=== PATIENT | female | born 1955 | race African-American/Black ===

== ENCOUNTER 2021-09-01 15:35 | Inpatient (IN) | payer MEDICARE, MEDICAID ==
[~2021-09-01] VITALS: Ht 160 cm; Wt 57.2 kg
[2021-09-01] MEDS ORDERED: SODIUM CHLORIDE 0.9% 1,000 ML IV ONE (16:15)
[2021-09-01 16:24] LABS: BASOPHILS % 0.3 % (0.0-2.0); EOSINOPHILS % 0.1 % (0.0-5.0); HEMATOCRIT. 38.5 % (36.0-48.0); LYMPHOCYTES % 20.4 % (20.0-50.0); MEAN CORPUSCULAR HEMOGLOBIN 30.1 pg (28.0-32.0); MEAN CORPUSCULAR VOLUME 89.3 fL (81.0-99.0); MEAN PLATELET VOLUME 8.2 fl (7.4-10.4); MONOCYTES % 10.4 % (2.0-8.0); NEUTROPHILS % 68.8 % (40.0-76.0); PLATELET 201 x1000/uL (130-400); RED BLOOD CELL COUNT 4.31 mill/uL (4.2-5.4); RED CELL DISTRIBUTION WIDTH 16.6 % (11.6-14.6)
[2021-09-01 16:35] LABS: CHLORIDE 91 mEq/L (98-107)
[2021-09-01] MEDS ORDERED: MAGNESIUM 2 G PREMIX 50 ML IV ONE (17:45)
[2021-09-01] MEDS ORDERED: POTASSIUM CHLORIDE INJ 40 MEQ in DEXT 5% WATER 250 ML IV ONE (17:45)
[2021-09-01] MEDS ORDERED: POTASSIUM CHLORIDE 20MEQ TABLET SR PO ONE (17:45)
[2021-09-01] MEDS: KCL 20MEQ/100ML PREMIX 100 ML IV SCH ×2 (18:43→23:36)
[2021-09-02] VITALS (7 sets, daily range): BP systolic 95–145; BP diastolic 58–81
[2021-09-02] MEDS ORDERED: ACETAMINOPHEN 325MG TABLET PO PRN ×2 (02:15→11:15)
[2021-09-02] MEDS ORDERED: ONDANSETRON HCL 4MG/2ML INJ IV PRN (02:15)
[2021-09-02] MEDS: POTASSIUM CHLORIDE 20MEQ TABLET SR PO SCH ×2 (08:21→16:47)
[2021-09-02] MEDS: DOCUSATE SODIUM 250MG CAPSULE PO SCH ×2 (08:21→16:47)
[2021-09-02] MEDS: ENOXAPARIN 40MG/0.4ML SYR SUBCUT SCH (08:22)
[2021-09-02 10:31] LABS: CHLORIDE 93 mEq/L (98-107)
[2021-09-02] MEDS ORDERED: CLONIDINE 0.1MG TABLET PO PRN (11:15)
[2021-09-02] MEDS ORDERED: HYDROCODONE/ACETAMINOPHEN 5/325MG TABLET PO PRN (11:15)
[2021-09-02] MEDS ORDERED: MAGNESIUM/ALUMINUM HYDROXIDE/SIMETHICONE 30ML UDC PO PRN ×2 (11:15→18:00)
[2021-09-02] MEDS ORDERED: DIPH25CA83 PO (11:21)
[2021-09-02] MEDS ORDERED: RISP05 PO (11:23)
[2021-09-02] MEDS ORDERED: MAGNESIUM 1 G PREMIX 100 ML IV NR (11:45)
[2021-09-02] MEDS ORDERED: POTASSIUM CHLORIDE INJ 60 MEQ in DEXT 5% WATER 470 ML IV NR (11:45)
[2021-09-02 14:57] LABS: CLARITY URINE CLEAR (CLEAR); COLOR URINE DARK YELLOW (YELLOW); KETONES URINE 3+ (NEGATIVE); LEUKOCYTE ESTERASE URINE TRACE (NEGATIVE); NITRITE URINE NEGATIVE (NEGATIVE); OCCULT BLOOD URINE NEGATIVE (NEGATIVE); PH URINE 6.5 (4.5-8.0); PROTEIN URINE 1+ (NEGATIVE)
[2021-09-02 15:16] LABS: *BARBITURATES SCREEN URINE NEGATIVE (NEGATIVE); *BENZODIAZEPINES SCREEN URINE NEGATIVE (NEGATIVE); *COCAINE SCREEN URINE NEGATIVE (NEGATIVE); CANNABINOID URINE SCREEN NEGATIVE (NEGATIVE); METHADONE URINE SCREEN NEGATIVE (NEGATIVE)
[2021-09-02 15:17] LABS: *AMPHETAMINES SCREEN URINE NEGATIVE (NEGATIVE); OPIATES URINE SCREEN NEGATIVE (NEGATIVE); PHENCYCLIDINE URINE SCREEN NEGATIVE (NEGATIVE)
[2021-09-02] MEDS ORDERED: LORAZEPAM 2MG/ML CPJ IV PRN (18:00)
[2021-09-02] MEDS ORDERED: NALOXONE HCL 0.4MG/ML VIAL IV PRN (18:15)
[2021-09-03] VITALS: BP 120/62
[2021-09-03] MEDS: KCL 20MEQ/100ML PREMIX 100 ML IV SCH ×3 (01:08→05:54)
[2021-09-03 04:00] VITALS: BP 106/75
[2021-09-03] MEDS: OMEPRAZOLE 20MG CAPSULE EXTENDED RELEASE PO SCH (06:15)
[2021-09-03 08:00] VITALS: BP 117/75
[2021-09-03] MEDS: FOLIC ACID 1MG TABLET PO SCH (08:48)
[2021-09-03] MEDS: MULTIVITAMINS,THER W-MINERALS TABLET PO SCH (08:48)
[2021-09-03] MEDS: ENOXAPARIN 40MG/0.4ML SYR SUBCUT SCH (08:49)
[2021-09-03] MEDS: DOCUSATE SODIUM 250MG CAPSULE PO SCH ×2 (08:49→16:40)
[2021-09-03] MEDS: THIAMINE HCL 100MG TABLET PO SCH (08:54)
[2021-09-03 09:01] LABS: BASOPHILS % 0.1 % (0.0-2.0); EOSINOPHILS % 0.1 % (0.0-5.0); HEMATOCRIT. 36.8 % (36.0-48.0); HEMOGLOBIN. 12.5 g/dL (12.0-16.0); LYMPHOCYTES % 23.1 % (20.0-50.0); MEAN CORPUSCULAR HEMOGLOBIN 30.6 pg (28.0-32.0); MEAN CORPUSCULAR VOLUME 89.8 fL (81.0-99.0); MEAN PLATELET VOLUME 8.8 fl (7.4-10.4); MONOCYTES % 12.1 % (2.0-8.0); NEUTROPHILS % 64.6 % (40.0-76.0); PLATELET 141 x1000/uL (130-400); RED CELL DISTRIBUTION WIDTH 16.3 % (11.6-14.6)
[2021-09-03 09:09] LABS: CHLORIDE 97 mEq/L (98-107)
[2021-09-03 09:15] LABS: PHOSPHORUS 2.4 mg/dL (2.5-4.9)
[2021-09-03 09:16] LABS: LDL CHOLESTEROL 74 mg/dL (5-100)
[2021-09-03 09:17] LABS: HDL CHOLESTEROL 28 mg/dL (40-59)
[2021-09-03 09:18] LABS: T4 FREE 1.51 ng/dL (0.76-1.46)
[2021-09-03 12:00] VITALS: BP 107/73
[2021-09-03] MEDS: MAGNESIUM OXIDE 400MG TABLET PO SCH (12:57)
[2021-09-03] MEDS ORDERED: SODIUM CHLORIDE 0.9% 500 ML IV ONE (13:00)
[2021-09-03 16:00] VITALS: BP 95/62
[2021-09-03 20:00] VITALS: BP 108/75
[2021-09-04] VITALS: BP 111/66
[2021-09-04 04:00] VITALS: BP 120/70
[2021-09-04 06:37] LABS: BASOPHILS % 0.1 % (0.0-2.0); CHLORIDE 97 mEq/L (98-107); EOSINOPHILS % 0.1 % (0.0-5.0); HEMATOCRIT. 35.2 % (36.0-48.0); HEMOGLOBIN. 11.9 g/dL (12.0-16.0); MEAN CORPUSCULAR HEMOGLOBIN 30.7 pg (28.0-32.0); MEAN CORPUSCULAR VOLUME 90.9 fL (81.0-99.0); MEAN PLATELET VOLUME 8.7 fl (7.4-10.4); MONOCYTES % 11.9 % (2.0-8.0); NEUTROPHILS % 51.9 % (40.0-76.0); PLATELET 120 x1000/uL (130-400); RED BLOOD CELL COUNT 3.87 mill/uL (4.2-5.4); RED CELL DISTRIBUTION WIDTH 16.5 % (11.6-14.6)
[2021-09-04 06:47] LABS: PHOSPHORUS 1.8 mg/dL (2.5-4.9)
[2021-09-04] MEDS: OMEPRAZOLE 20MG CAPSULE EXTENDED RELEASE PO SCH (06:55)
[2021-09-04 08:00] VITALS: BP 91/58
[2021-09-04] MEDS ORDERED: POTASSIUM CHLORIDE INJ 60 MEQ in DEXT 5% WATER 500 ML IV ONE (08:00)
[2021-09-04] MEDS: MULTIVITAMINS,THER W-MINERALS TABLET PO SCH (09:40)
[2021-09-04] MEDS: ENOXAPARIN 40MG/0.4ML SYR SUBCUT SCH (09:40)
[2021-09-04] MEDS: THIAMINE HCL 100MG TABLET PO SCH (09:40)
[2021-09-04] MEDS: FOLIC ACID 1MG TABLET PO SCH (09:40)
[2021-09-04] MEDS: MAGNESIUM OXIDE 400MG TABLET PO SCH (09:40)
[2021-09-04] MEDS: DOCUSATE SODIUM 250MG CAPSULE PO SCH (09:40)
[2021-09-04 12:00] VITALS: BP 95/58
[2021-09-04] MEDS ORDERED: LACTULOSE 20G/30ML UDC PO NR (12:15)
[2021-09-04] MEDS ORDERED: NALOXONE HCL 0.4MG/ML VIAL IV PRN (13:30)
[2021-09-04] MEDS ORDERED: MAGNESIUM 2 G PREMIX 50 ML IV NR (13:30)
[2021-09-04 13:31] LABS: INR 1.2; PROTHROMBIN TIME 12.6 sec (9.6-11.0)
[2021-09-04] MEDS ORDERED: ENOXAPARIN 60MG/0.6ML SYR SUBCUT SCH (13:43)
[2021-09-04] MEDS ORDERED: POTASSIUM PHOS,M-BASIC-D-BASIC 20 MMOL in DEXT 5% WATER 243.3333 ML IV NR (14:00)
[2021-09-04] MEDS ORDERED: ENOXAPARIN 60MG/0.6ML SYR SUBCUT NR (14:32)
[2021-09-04 16:00] VITALS: BP 101/74
[2021-09-04] MEDS ORDERED: DEXT 5% WATER + KCL 20MEQ/L 1,000 ML IV SCH (16:00)
[2021-09-04] MEDS ORDERED: LACTULOSE 20G/30ML UDC PO SCH (17:00)
[2021-09-04 20:00] VITALS: BP 115/71
[2021-09-05] VITALS: BP 118/66
[2021-09-05] MEDS: ENOXAPARIN 60MG/0.6ML SYR SUBCUT SCH ×3 (02:47→21:27)
[2021-09-05 04:00] VITALS: BP 116/65
[2021-09-05 07:49] LABS: CHLORIDE 97 mEq/L (98-107)
[2021-09-05 07:54] LABS: BASOPHILS % 0.1 % (0.0-2.0); HEMATOCRIT. 38.8 % (36.0-48.0); HEMOGLOBIN. 12.8 g/dL (12.0-16.0); LYMPHOCYTES % 22.8 % (20.0-50.0); MEAN CORPUSCULAR VOLUME 90.9 fL (81.0-99.0); MEAN PLATELET VOLUME 9.3 fl (7.4-10.4); MONOCYTES % 14.7 % (2.0-8.0); NEUTROPHILS % 62.4 % (40.0-76.0); PLATELET 138 x1000/uL (130-400); RED BLOOD CELL COUNT 4.27 mill/uL (4.2-5.4); RED CELL DISTRIBUTION WIDTH 16.8 % (11.6-14.6)
[2021-09-05 07:55] LABS: PHOSPHORUS 3.2 mg/dL (2.5-4.9)
[2021-09-05 08:00] VITALS: BP_SYST 101; BP_SYST 105; BP_SYST 85; BP_DIAS 60; BP_DIAS 67; BP_DIAS 73
[2021-09-05] MEDS: MULTIVITAMINS,THER W-MINERALS TABLET PO SCH (09:00)
[2021-09-05] MEDS: FOLIC ACID 1MG TABLET PO SCH (09:00)
[2021-09-05] MEDS: MAGNESIUM OXIDE 400MG TABLET PO SCH (09:00)
[2021-09-05] MEDS: THIAMINE HCL 100MG TABLET PO SCH (09:00)
[2021-09-05] MEDS ORDERED: DIATR MEGLU/DIATRIZOATE SOLN 30ML PO SCH (09:00)
[2021-09-05] MEDS: PANTOPRAZOLE SODIUM 40 MG/VIAL IV SCH (09:37)
[2021-09-05 12:00] VITALS: BP 96/54
[2021-09-05] MEDS: DEXT 5%/0.45% NACL 1000ML 1,000 ML IV SCH ×2 (13:12→21:27)
[2021-09-05] MEDS ORDERED: IOHEXOL-300 100 ML BOTTLE ONE (15:28)
[2021-09-05 16:00] VITALS: BP_SYST 98; BP_SYST 99; BP_DIAS 57; BP_DIAS 63
[2021-09-05 20:00] VITALS: BP 98/50
[2021-09-06] VITALS (14 sets, daily range): BP systolic 66–110; BP diastolic 35–71
[2021-09-06] MEDS: DEXT 5%/0.45% NACL 1000ML 1,000 ML IV SCH ×3 (07:09→23:09)
[2021-09-06 07:17] LABS: BASOPHILS % 0.2 % (0.0-2.0); EOSINOPHILS % 0.1 % (0.0-5.0); HEMATOCRIT. 37.2 % (36.0-48.0); HEMOGLOBIN. 12.3 g/dL (12.0-16.0); MEAN CORPUSCULAR HEMOGLOBIN 30.2 pg (28.0-32.0); MEAN CORPUSCULAR VOLUME 91.3 fL (81.0-99.0); MEAN PLATELET VOLUME 9.1 fl (7.4-10.4); MONOCYTES % 14.9 % (2.0-8.0); NEUTROPHILS % 54.8 % (40.0-76.0); PLATELET 115 x1000/uL (130-400); RED BLOOD CELL COUNT 4.07 mill/uL (4.2-5.4); RED CELL DISTRIBUTION WIDTH 16.6 % (11.6-14.6)
[2021-09-06 07:41] LABS: CHLORIDE 97 mEq/L (98-107)
[2021-09-06] MEDS: MULTIVITAMINS,THER W-MINERALS TABLET PO SCH (09:00)
[2021-09-06] MEDS: MAGNESIUM OXIDE 400MG TABLET PO SCH (09:00)
[2021-09-06] MEDS: FOLIC ACID 1MG TABLET PO SCH (09:00)
[2021-09-06] MEDS: THIAMINE HCL 100MG TABLET PO SCH (09:00)
[2021-09-06] MEDS: ENOXAPARIN 60MG/0.6ML SYR SUBCUT SCH ×2 (10:29→23:00)
[2021-09-06] MEDS: PANTOPRAZOLE SODIUM 40 MG/VIAL IV SCH (10:29)
[2021-09-06] MEDS ORDERED: LIDOCAINE HCL 1% 10 MG/ML 10ML VIAL ONE (15:08)
[2021-09-06] MEDS ORDERED: BUPIVACAINE HCL/PF 0.5% (5MG/ML) 10ML ONE (15:08)
[2021-09-06] MEDS ORDERED: POLYMYXIN B SULFATE 500000 UNITS/VIAL ONE (15:09)
[2021-09-06] MEDS ORDERED: SODIUM CHLORIDE 0.9% 500 ML IV ONE (16:15)
[2021-09-06] MEDS ORDERED: FENTANYL CITRATE/PF 50MCG/ML 2ML VIAL ONE (18:25)
[2021-09-06] MEDS ORDERED: PROPOFOL 200MG/20ML VIAL IV ONE (18:25)
[2021-09-06] MEDS ORDERED: NEOSTIGMINE METHYLSULFATE 1MG/ML 10 ML VIAL ONE (18:25)
[2021-09-06] MEDS ORDERED: ROCURONIUM BROMIDE 10MG/ML VIAL 5ML IV ONE (18:25)
[2021-09-06] MEDS ORDERED: MIDAZOLAM HCL 2 MG/2 ML VIAL ONE (18:26)
[2021-09-06] MEDS ORDERED: GLYCOPYRROLATE 0.2 MG/ML 2ML VIAL ONE (18:26)
[2021-09-06] MEDS ORDERED: ONDANSETRON HCL 4MG/2ML INJ IV PRN (19:15)
[2021-09-06] MEDS ORDERED: HYDROMORPHONE HCL/PF 2MG/ML CPJ IV PRN (19:15)
[2021-09-06] MEDS ORDERED: MEPERIDINE HCL/PF 25MG/ML CPJ IV PRN (19:15)
[2021-09-06] MEDS ORDERED: LABETALOL 5MG/ML SYR 20 MG/4 ML SYRINGE IV PRN (19:15)
[2021-09-06] MEDS ORDERED: PIPERACILLIN/TAZOBACTAM 3.375 G in DEXTROSE 5% WATER 50 ML IV SCH (19:29)
[2021-09-06] MEDS ORDERED: ALBUMIN HUMAN 12.5G/250ML (5%) IV ONE ×2 (19:36→20:38)
[2021-09-06] MEDS ORDERED: ONDANSETRON HCL 4MG/2ML INJ ONE (19:44)
[2021-09-06] MEDS ORDERED: DEXAMETHASONE 4MG/ML 1ML VIAL ONE (19:44)
[2021-09-06] MEDS ORDERED: PHENYLEPHRINE HCL 10 MG/ML 1ML (IV VIAL) IV ONE ×2 (19:44→21:18)
[2021-09-06] MEDS ORDERED: MORPHINE SULFATE 2 MG/ML CPJ (NOT FOR IM USE) IV PRN (22:30)
[2021-09-06 22:38] LABS: BG BASE EXCESS -7.2 mmol/L (-2.0-2.0); BG CARBOXYHEMOGLOBIN 0.3 % (0.5-1.5); BG DEOXYHEMOGLOBIN 0.6 % (0.0-5.0); BG FRACTION INSPIRED OXYGEN 100; BG HCO3 ACT 18.6 mmol/L (22.0-26.0); BG METHEMOGLOBIN 0.6 % (0.0-1.5); BG OXYGEN SATURATION 99.4 % (92.0-98.5); BG OXYHEMOGLOBIN 98.5 % (94.0-97.0); BG PCO2 38.4 mmHg (35.0-45.0); BG PH 7.303 (7.350-7.450); BG PO2 529.1 mmHg (75.0-100.0); BG SAMPLE SITE RIGHT RADIAL; BG VENT MODE VENT - AC
[2021-09-06] MEDS: PHENYLEPHRINE 100 MG in DEXT 5% WATER 240 ML IV PRN (23:50)
[2021-09-07] VITALS (103 sets, daily range): BP systolic 68–138; BP diastolic 23–75
[2021-09-07 06:20] LABS: CHLORIDE 107 mEq/L (98-107)
[2021-09-07 06:24] LABS: HEMOGLOBIN. 10.1 g/dL (12.0-16.0); MEAN PLATELET VOLUME 9.2 fl (7.4-10.4); RED BLOOD CELL COUNT 3.31 mill/uL (4.2-5.4)
[2021-09-07 06:25] LABS: PHOSPHORUS 3.3 mg/dL (2.5-4.9)
[2021-09-07 06:32] LABS: HEMATOCRIT. 29.7 % (36.0-48.0); LYMPHOCYTES % 12.4 % (20.0-50.0); MEAN CORPUSCULAR HEMOGLOBIN 30.6 pg (28.0-32.0); NEUTROPHILS % 79.6 % (40.0-76.0); PLATELET 128 x1000/uL (130-400)
[2021-09-07] MEDS ORDERED: SODIUM CHLORIDE 0.9% 1,000 ML IV ONE (06:45)
[2021-09-07] MEDS ORDERED: MAGNESIUM 2 G PREMIX 50 ML IV SCH ×2 (07:30→10:30)
[2021-09-07] MEDS ORDERED: POTASSIUM CHLORIDE INJ 40 MEQ in DEXT 5% WATER 250 ML IV ONE (08:00)
[2021-09-07] MEDS ORDERED: ALBUMIN HUMAN 12.5GM/50ML (25%) IV SCH (08:00)
[2021-09-07] MEDS: FOLIC ACID 1MG TABLET PO SCH (08:26)
[2021-09-07] MEDS: MAGNESIUM OXIDE 400MG TABLET PO SCH (08:26)
[2021-09-07] MEDS: THIAMINE HCL 100 MG in SODIUM CHLORIDE 0.9% 49 ML IV SCH (08:26)
[2021-09-07] MEDS: ENOXAPARIN 60MG/0.6ML SYR SUBCUT SCH ×2 (08:26→21:56)
[2021-09-07] MEDS: MULTIVITAMINS,THER W-MINERALS TABLET PO SCH (08:26)
[2021-09-07] MEDS: PANTOPRAZOLE SODIUM 40 MG/VIAL IV SCH (08:26)
[2021-09-07] MEDS: KCL 20MEQ/100ML PREMIX 100 ML IV SCH ×2 (08:29→10:48)
[2021-09-07] MEDS ORDERED: LIDOCAINE HCL 1% 10 MG/ML 10ML VIAL ONE (09:31)
[2021-09-07 09:58] LABS: BG CARBOXYHEMOGLOBIN 0.3 % (0.5-1.5); BG DEOXYHEMOGLOBIN 1.5 % (0.0-5.0); BG HCO3 ACT 15.1 mmol/L (22.0-26.0); BG METHEMOGLOBIN 0.5 % (0.0-1.5); BG OXYGEN SATURATION 98.5 % (92.0-98.5); BG OXYHEMOGLOBIN 97.7 % (94.0-97.0); BG PCO2 23.8 mmHg (35.0-45.0); BG PO2 159.3 mmHg (75.0-100.0); BG SAMPLE SITE RIGHT RADIAL; BG TOTAL HEMOGLOBIN 9.5 g/dL (12.0-18.0); BG VENT MODE VENT - AC
[2021-09-07] MEDS ORDERED: IPRATROPIUM/ALBUTEROL 0.5-3(2.5)MG/3ML NEB HHN PRN (10:00)
[2021-09-07] MEDS ORDERED: SODIUM CHLORIDE 0.9% 500 ML IV ONE (10:30)
[2021-09-07] MEDS: PHENYLEPHRINE 100 MG in DEXT 5% WATER 240 ML IV PRN ×2 (10:50→23:44)
[2021-09-07] MEDS: VASOPRESSIN 20 UNIT in SODIUM CHLORIDE 0.9% 99 ML IV PRN ×3 (10:51→23:43)
[2021-09-07] MEDS: FENTANYL CITRATE/PF 2,500 MCG in SODIUM CHLORIDE 0.9% 200 ML IV PRN (13:30)
[2021-09-07] MEDS: IPRATROPIUM/ALBUTEROL 0.5-3(2.5)MG/3ML NEB HHN SCH ×2 (14:11→21:27)
[2021-09-07] MEDS: DEXT 5%/0.45% NACL 1000ML 1,000 ML IV SCH (15:42)
[2021-09-08] VITALS (95 sets, daily range): BP systolic 74–132; BP diastolic 47–89
[2021-09-08] MEDS: IPRATROPIUM/ALBUTEROL 0.5-3(2.5)MG/3ML NEB HHN SCH ×4 (01:02→20:54)
[2021-09-08] MEDS: DEXT 5%/0.45% NACL 1000ML 1,000 ML IV SCH ×2 (01:53→09:56)
[2021-09-08] MEDS: DEXT 5% WATER + KCL 20MEQ/L 1,000 ML IV SCH ×2 (02:30→10:40)
[2021-09-08 05:05] LABS: BASOPHILS % 0.3 % (0.0-2.0); HEMATOCRIT. 23.8 % (36.0-48.0); LYMPHOCYTES % 20.2 % (20.0-50.0); MEAN CORPUSCULAR HEMOGLOBIN 30.1 pg (28.0-32.0); MEAN CORPUSCULAR VOLUME 89.6 fL (81.0-99.0); MEAN PLATELET VOLUME 9.2 fl (7.4-10.4); MONOCYTES % 9.9 % (2.0-8.0); NEUTROPHILS % 69.6 % (40.0-76.0); PLATELET 89 x1000/uL (130-400); RED BLOOD CELL COUNT 2.66 mill/uL (4.2-5.4); RED CELL DISTRIBUTION WIDTH 16.8 % (11.6-14.6)
[2021-09-08 05:15] LABS: CHLORIDE 103 mEq/L (98-107)
[2021-09-08 05:25] LABS: PHOSPHORUS 2.1 mg/dL (2.5-4.9)
[2021-09-08] MEDS ORDERED: POTASSIUM CHLORIDE INJ 40 MEQ in DEXT 5% WATER 250 ML IV ONE (07:15)
[2021-09-08] MEDS ORDERED: KCL 20MEQ/100ML PREMIX 100 ML IV SCH (07:30)
[2021-09-08] MEDS: PANTOPRAZOLE SODIUM 40 MG/VIAL IV SCH (08:13)
[2021-09-08] MEDS: FOLIC ACID 1MG TABLET PO SCH (08:13)
[2021-09-08] MEDS: MULTIVITAMINS,THER W-MINERALS TABLET PO SCH (08:13)
[2021-09-08] MEDS: PHENYLEPHRINE 100 MG in DEXT 5% WATER 240 ML IV PRN ×2 (08:14→19:44)
[2021-09-08] MEDS: VASOPRESSIN 20 UNIT in SODIUM CHLORIDE 0.9% 99 ML IV PRN (08:17)
[2021-09-08] MEDS: ENOXAPARIN 60MG/0.6ML SYR SUBCUT SCH (08:18)
[2021-09-08] MEDS ORDERED: ALBUMIN HUMAN 25GM/500ML (5%) IV ONE (08:30)
[2021-09-08 08:32] LABS: BG BASE EXCESS -4.3 mmol/L (-2.0-2.0); BG CARBOXYHEMOGLOBIN 0.3 % (0.5-1.5); BG DEOXYHEMOGLOBIN 1.1 % (0.0-5.0); BG FRACTION INSPIRED OXYGEN 30; BG HCO3 ACT 17.8 mmol/L (22.0-26.0); BG METHEMOGLOBIN 0.4 % (0.0-1.5); BG OXYGEN SATURATION 98.9 % (92.0-98.5); BG OXYHEMOGLOBIN 98.2 % (94.0-97.0); BG PCO2 23.1 mmHg (35.0-45.0); BG PH 7.504 (7.350-7.450); BG PO2 159.6 mmHg (75.0-100.0); BG SAMPLE SITE RIGHT RADIAL; BG TOTAL HEMOGLOBIN 8.7 g/dL (12.0-18.0); BG VENT MODE VENT - AC
[2021-09-08] MEDS: THIAMINE HCL 100 MG in SODIUM CHLORIDE 0.9% 49 ML IV SCH (08:32)
[2021-09-08] MEDS ORDERED: MAGNESIUM 2 G PREMIX 50 ML IV NR (09:00)
[2021-09-08] MEDS: FAMOTIDINE 20MG/2ML VIAL IV SCH (09:56)
[2021-09-08] MEDS: KCL 20MEQ/100ML PREMIX 100 ML IV SCH ×2 (10:25→12:57)
[2021-09-08] MEDS ORDERED: POTASSIUM PHOS,M-BASIC-D-BASIC 15 MMOL in DEXT 5% WATER 245 ML IV ONE (10:30)
[2021-09-08] MEDS: FENTANYL CITRATE/PF 2,500 MCG in SODIUM CHLORIDE 0.9% 200 ML IV PRN (19:44)
[2021-09-09] VITALS (80 sets, daily range): BP systolic 94–137; BP diastolic 55–85
[2021-09-09] MEDS ORDERED: IOHEXOL-350 100 ML BOTTLE ONE (02:41)
[2021-09-09] MEDS: PHENYLEPHRINE 100 MG in DEXT 5% WATER 240 ML IV PRN (05:27)
[2021-09-09] MEDS: FENTANYL CITRATE/PF 2,500 MCG in SODIUM CHLORIDE 0.9% 200 ML IV PRN (05:33)
[2021-09-09 05:35] LABS: HEMOGLOBIN. 7.8 g/dL (12.0-16.0); RED BLOOD CELL COUNT 2.59 mill/uL (4.2-5.4)
[2021-09-09 05:42] LABS: CHLORIDE 106 mEq/L (98-107)
[2021-09-09 05:49] LABS: BASOPHILS % 0.2 % (0.0-2.0); EOSINOPHILS % 0.4 % (0.0-5.0); HEMATOCRIT. 23.1 % (36.0-48.0); LYMPHOCYTES % 12.1 % (20.0-50.0); MEAN CORPUSCULAR HEMOGLOBIN 30.2 pg (28.0-32.0); MEAN CORPUSCULAR VOLUME 88.9 fL (81.0-99.0); MEAN PLATELET VOLUME 9.4 fl (7.4-10.4); MONOCYTES % 10.2 % (2.0-8.0); NEUTROPHILS % 77.1 % (40.0-76.0); PHOSPHORUS 2.2 mg/dL (2.5-4.9); PLATELET 83 x1000/uL (130-400); RED CELL DISTRIBUTION WIDTH 16.6 % (11.6-14.6)
[2021-09-09 08:10] LABS: BG BASE EXCESS -1.2 mmol/L (-2.0-2.0); BG CARBOXYHEMOGLOBIN 0.2 % (0.5-1.5); BG DEOXYHEMOGLOBIN 1.1 % (0.0-5.0); BG HCO3 ACT 21.4 mmol/L (22.0-26.0); BG METHEMOGLOBIN 0.7 % (0.0-1.5); BG OXYGEN SATURATION 98.9 % (92.0-98.5); BG PH 7.501 (7.350-7.450); BG PO2 183.3 mmHg (75.0-100.0); BG SAMPLE SITE RIGHT RADIAL; BG TOTAL HEMOGLOBIN 8.4 g/dL (12.0-18.0); BG VENT MODE VENT - AC
[2021-09-09] MEDS: IPRATROPIUM/ALBUTEROL 0.5-3(2.5)MG/3ML NEB HHN SCH ×4 (08:42→20:00)
[2021-09-09] MEDS: FOLIC ACID 1MG TABLET PO SCH (09:02)
[2021-09-09] MEDS: MULTIVITAMINS,THER W-MINERALS TABLET PO SCH (09:03)
[2021-09-09] MEDS: THIAMINE HCL 100 MG in SODIUM CHLORIDE 0.9% 49 ML IV SCH (09:03)
[2021-09-09] MEDS: FAMOTIDINE 20MG/2ML VIAL IV SCH (09:03)
[2021-09-09] MEDS: KCL 20MEQ/100ML PREMIX 100 ML IV SCH ×3 (09:44→13:09)
[2021-09-09 10:01] LABS: BG BASE EXCESS -2.5 mmol/L (-2.0-2.0); BG CARBOXYHEMOGLOBIN 0.3 % (0.5-1.5); BG DEOXYHEMOGLOBIN 1.1 % (0.0-5.0); BG HCO3 ACT 19.6 mmol/L (22.0-26.0); BG METHEMOGLOBIN 0.2 % (0.0-1.5); BG OXYGEN SATURATION 98.9 % (92.0-98.5); BG OXYHEMOGLOBIN 98.4 % (94.0-97.0); BG PH 7.513 (7.350-7.450); BG PO2 200.9 mmHg (75.0-100.0); BG SAMPLE SITE LEFT RADIAL; BG TOTAL HEMOGLOBIN 9.1 g/dL (12.0-18.0); BG VENT MODE VENT - CPAP
[2021-09-09] MEDS ORDERED: POTASSIUM-SODIUM PHOSPHATE POWDER PACKET PO NR (10:45)
[2021-09-09] MEDS ORDERED: POTASSIUM CHLORIDE INJ 40 MEQ in DEXT 5% WATER 250 ML IV ONE (10:45)
[2021-09-09] MEDS ORDERED: POTASSIUM CHLORIDE 20MEQ TABLET SR PO NR (10:45)
[2021-09-09] MEDS: DEXT 5% WATER + KCL 20MEQ/L 1,000 ML IV SCH ×3 (12:16→23:00)
[2021-09-09] MEDS ORDERED: KCL 20MEQ/100ML PREMIX 100 ML IV SCH (13:00)
[2021-09-09] MEDS ORDERED: MAGNESIUM 4 G PREMIX 100 ML IV NR (13:00)
[2021-09-09] MEDS ORDERED: POTASSIUM CHLORIDE INJ 40 MEQ in DEXT 5% WATER 250 ML IV NR (16:30)
[2021-09-10] VITALS (32 sets, daily range): BP systolic 87–146; BP diastolic 57–84
[2021-09-10 05:51] LABS: BASOPHILS % 0.1 % (0.0-2.0); EOSINOPHILS % 0.2 % (0.0-5.0); HEMATOCRIT. 22.1 % (36.0-48.0); HEMOGLOBIN. 7.5 g/dL (12.0-16.0); LYMPHOCYTES % 20.2 % (20.0-50.0); MEAN CORPUSCULAR HEMOGLOBIN 30.3 pg (28.0-32.0); MEAN PLATELET VOLUME 8.9 fl (7.4-10.4); MONOCYTES % 9.2 % (2.0-8.0); NEUTROPHILS % 70.3 % (40.0-76.0); RED BLOOD CELL COUNT 2.48 mill/uL (4.2-5.4); RED CELL DISTRIBUTION WIDTH 17.3 % (11.6-14.6)
[2021-09-10 05:56] LABS: CHLORIDE 105 mEq/L (98-107)
[2021-09-10 06:05] LABS: PHOSPHORUS 1.8 mg/dL (2.5-4.9)
[2021-09-10] MEDS: FOLIC ACID 1MG TABLET PO SCH (08:22)
[2021-09-10] MEDS: FAMOTIDINE 20MG/2ML VIAL IV SCH (08:22)
[2021-09-10] MEDS: MULTIVITAMINS,THER W-MINERALS TABLET PO SCH (08:22)
[2021-09-10] MEDS: THIAMINE HCL 100 MG in SODIUM CHLORIDE 0.9% 49 ML IV SCH (08:22)
[2021-09-10] MEDS: MAGNESIUM OXIDE 400MG TABLET PO SCH (08:22)
[2021-09-10] MEDS: KCL 20MEQ/100ML PREMIX 100 ML IV SCH ×3 (08:32→11:46)
[2021-09-10] MEDS: DEXT 5% WATER + KCL 20MEQ/L 1,000 ML IV SCH ×2 (08:33→19:57)
[2021-09-10] MEDS: IPRATROPIUM/ALBUTEROL 0.5-3(2.5)MG/3ML NEB HHN SCH ×4 (08:56→20:36)
[2021-09-10] MEDS ORDERED: POTASSIUM PHOS,M-BASIC-D-BASIC 15 MMOL in DEXT 5% WATER 245 ML IV ONE (11:00)
[2021-09-11] VITALS (28 sets, daily range): BP systolic 82–120; BP diastolic 50–76
[2021-09-11] MEDS: IPRATROPIUM/ALBUTEROL 0.5-3(2.5)MG/3ML NEB HHN SCH ×4 (02:19→21:06)
[2021-09-11] MEDS: DEXT 5% WATER + KCL 20MEQ/L 1,000 ML IV SCH ×2 (06:08→22:39)
[2021-09-11 07:15] LABS: BASOPHILS % 0.2 % (0.0-2.0); EOSINOPHILS % 0.6 % (0.0-5.0); HEMOGLOBIN. 7.1 g/dL (12.0-16.0); LYMPHOCYTES % 19.9 % (20.0-50.0); MEAN CORPUSCULAR HEMOGLOBIN 30.6 pg (28.0-32.0); MEAN CORPUSCULAR VOLUME 90.8 fL (81.0-99.0); MEAN PLATELET VOLUME 10.2 fl (7.4-10.4); NEUTROPHILS % 72.3 % (40.0-76.0); PLATELET 51 x1000/uL (130-400); RED BLOOD CELL COUNT 2.32 mill/uL (4.2-5.4); RED CELL DISTRIBUTION WIDTH 16.8 % (11.6-14.6)
[2021-09-11] MEDS ORDERED: CEFAZOLIN 1000MG PREMIX 50 ML IV SCH (07:45)
[2021-09-11] MEDS ORDERED: LIDOCAINE HCL 1% 20ML VIAL (Pyxis) INJ ONE (07:51)
[2021-09-11 07:57] LABS: CHLORIDE 106 mEq/L (98-107)
[2021-09-11 08:08] LABS: PHOSPHORUS 1.7 mg/dL (2.5-4.9)
[2021-09-11] MEDS: FAMOTIDINE 20MG/2ML VIAL IV SCH ×2 (08:12→09:27)
[2021-09-11] MEDS: MAGNESIUM OXIDE 400MG TABLET PO SCH (08:13)
[2021-09-11] MEDS: MULTIVITAMINS,THER W-MINERALS TABLET PO SCH (08:13)
[2021-09-11] MEDS: FOLIC ACID 1MG TABLET PO SCH (08:13)
[2021-09-11] MEDS: THIAMINE HCL 100 MG in SODIUM CHLORIDE 0.9% 49 ML IV SCH ×2 (08:13→09:28)
[2021-09-11 12:46] LABS: PLATELET 47 x1000/uL (130-400)
[2021-09-11] MEDS ORDERED: POTASSIUM PHOS,M-BASIC-D-BASIC 20 MMOL in DEXT 5% WATER 243.3333 ML IV NR (13:00)
[2021-09-12] VITALS (12 sets, daily range): BP systolic 88–126; BP diastolic 50–67
[2021-09-12] MEDS: IPRATROPIUM/ALBUTEROL 0.5-3(2.5)MG/3ML NEB HHN SCH ×4 (02:10→20:54)
[2021-09-12] MEDS: DEXT 5% WATER + KCL 20MEQ/L 1,000 ML IV SCH ×2 (03:40→13:47)
[2021-09-12] MEDS: GUAIFENESIN 200MG/10ML SUGAR FREE UDC PO SCH ×5 (05:18→23:00)
[2021-09-12 05:50] LABS: CHLORIDE 104 mEq/L (98-107)
[2021-09-12 06:09] LABS: PHOSPHORUS 3.4 mg/dL (2.5-4.9)
[2021-09-12] MEDS ORDERED: POTASSIUM CHLORIDE INJ 60 MEQ in DEXT 5% WATER 250 ML IV ONE (06:45)
[2021-09-12 06:50] LABS: BASOPHILS % 0.1 % (0.0-2.0); EOSINOPHILS % 0.1 % (0.0-5.0); LYMPHOCYTES % 19.9 % (20.0-50.0); MEAN CORPUSCULAR HEMOGLOBIN 30.3 pg (28.0-32.0); MEAN CORPUSCULAR VOLUME 87.2 fL (81.0-99.0); MEAN PLATELET VOLUME 9.7 fl (7.4-10.4); MONOCYTES % 6.5 % (2.0-8.0); NEUTROPHILS % 73.4 % (40.0-76.0); RED BLOOD CELL COUNT 2.97 mill/uL (4.2-5.4); RED CELL DISTRIBUTION WIDTH 15.9 % (11.6-14.6)
[2021-09-12 07:06] LABS: HEMATOCRIT. 25.9 % (36.0-48.0)
[2021-09-12] MEDS: KCL 20MEQ/100ML PREMIX 100 ML IV SCH ×3 (08:08→13:47)
[2021-09-12] MEDS: FAMOTIDINE 20MG/2ML VIAL IV SCH (10:26)
[2021-09-12] MEDS: MULTIVITAMINS,THER W-MINERALS TABLET PO SCH (10:26)
[2021-09-12] MEDS: THIAMINE HCL 100 MG in SODIUM CHLORIDE 0.9% 49 ML IV SCH (10:26)
[2021-09-12] MEDS: MAGNESIUM OXIDE 400MG TABLET PO SCH (10:26)
[2021-09-12] MEDS: FOLIC ACID 1MG TABLET PO SCH (10:26)
[2021-09-12 12:38] LABS: PLATELET ESTIMATE MARKEDLY DECREASED
[2021-09-12 12:40] LABS: PLATELET 40 x1000/uL (130-400)
[2021-09-12] MEDS ORDERED: HYDROCODONE/ACETAMINOPHEN 10/325MG TABLET PO PRN (14:00)
[2021-09-13] VITALS (10 sets, daily range): BP systolic 94–112; BP diastolic 53–67
[2021-09-13] MEDS: IPRATROPIUM/ALBUTEROL 0.5-3(2.5)MG/3ML NEB HHN SCH ×3 (01:13→13:36)
[2021-09-13] MEDS: DEXT 5% WATER + KCL 20MEQ/L 1,000 ML IV SCH (03:30)
[2021-09-13 06:44] LABS: CHLORIDE 105 mEq/L (98-107)
[2021-09-13 06:56] LABS: BASOPHILS % 0.1 % (0.0-2.0); EOSINOPHILS % 0.1 % (0.0-5.0); HEMATOCRIT. 25.7 % (36.0-48.0); HEMOGLOBIN. 8.8 g/dL (12.0-16.0); LYMPHOCYTES % 15.9 % (20.0-50.0); MEAN CORPUSCULAR HEMOGLOBIN 30.3 pg (28.0-32.0); MEAN CORPUSCULAR VOLUME 88.4 fL (81.0-99.0); MEAN PLATELET VOLUME 9.3 fl (7.4-10.4); MONOCYTES % 5.3 % (2.0-8.0); NEUTROPHILS % 78.6 % (40.0-76.0); RED CELL DISTRIBUTION WIDTH 16.3 % (11.6-14.6)
[2021-09-13 06:59] LABS: PHOSPHORUS 3.1 mg/dL (2.5-4.9)
[2021-09-13] MEDS: GUAIFENESIN 200MG/10ML SUGAR FREE UDC PO SCH ×2 (07:31→12:44)
[2021-09-13] MEDS: THIAMINE HCL 100 MG in SODIUM CHLORIDE 0.9% 49 ML IV SCH (08:28)
[2021-09-13] MEDS: MAGNESIUM OXIDE 400MG TABLET PO SCH (08:28)
[2021-09-13] MEDS: FOLIC ACID 1MG TABLET PO SCH (08:29)
[2021-09-13] MEDS: FAMOTIDINE 20MG/2ML VIAL IV SCH (08:29)
[2021-09-13] MEDS: MULTIVITAMINS,THER W-MINERALS TABLET PO SCH (08:29)
[2021-09-13 08:31] LABS: PLATELET 40 x1000/uL (130-400)
[2021-09-13] MEDS ORDERED: POTASSIUM CHLORIDE 20MEQ TABLET SR PO SCH (12:00)
[2021-09-13] MEDS ORDERED: MAGNESIUM 2 G PREMIX 50 ML IV SCH (13:00)
== END 2021-09-13 18:35 | DRG 231 ==
LOC: ER 15:35 → 8WST 20:11 → ENRESERV 23:05 → MICUNO 09-06 22:38 → 5EST 09-10 13:05
PROVIDERS: ADMIT Internal Medicine; ATTEND Internal Medicine
PROC: 0HBRXZZ Excision of Toe Nail, External Approach (ICD-10-PCS; 2021-09-05)
PROC: 0HBRXZZ Excision of Toe Nail, External Approach (ICD-10-PCS; 2021-09-05)
PROC: 0HBRXZZ Excision of Toe Nail, External Approach (ICD-10-PCS; 2021-09-05)
PROC: 0HBRXZZ Excision of Toe Nail, External Approach (ICD-10-PCS; 2021-09-05)
PROC: 0HBRXZZ Excision of Toe Nail, External Approach (ICD-10-PCS; 2021-09-05)
PROC: 0HBRXZZ Excision of Toe Nail, External Approach (ICD-10-PCS; 2021-09-05)
PROC: 0HBRXZZ Excision of Toe Nail, External Approach (ICD-10-PCS; 2021-09-05)
PROC: 0HBRXZZ Excision of Toe Nail, External Approach (ICD-10-PCS; 2021-09-05)
PROC: 0HBRXZZ Excision of Toe Nail, External Approach (ICD-10-PCS; 2021-09-05)
PROC: 0HBRXZZ Excision of Toe Nail, External Approach (ICD-10-PCS; 2021-09-05)
PROC: 0D1L0Z4 Bypass Transverse Colon to Cutaneous, Open Approach (ICD-10-PCS; principal; 2021-09-06)
PROC: 0BH17EZ Insertion of Endotracheal Airway into Trachea, Via Natural or Artificial Opening (ICD-10-PCS; 2021-09-06)
PROC: 5A1945Z Respiratory Ventilation, 24-96 Consecutive Hours (ICD-10-PCS; 2021-09-06)
PROC: 0DBN0ZZ Excision of Sigmoid Colon, Open Approach (ICD-10-PCS; 2021-09-06)
PROC: 0DBL0ZZ Excision of Transverse Colon, Open Approach (ICD-10-PCS; 2021-09-06)
PROC: 02HV33Z Insertion of Infusion Device into Superior Vena Cava, Percutaneous Approach (ICD-10-PCS; 2021-09-07)
PROC: B548ZZA Ultrasonography of Superior Vena Cava, Guidance (ICD-10-PCS; 2021-09-07)
PROC: 06H03DZ Insertion of Intraluminal Device into Inferior Vena Cava, Percutaneous Approach (ICD-10-PCS; 2021-09-11)
PROC: B5191ZZ Fluoroscopy of Inferior Vena Cava using Low Osmolar Contrast (ICD-10-PCS; 2021-09-11)
PROC: 30233N1 Transfusion of Nonautologous Red Blood Cells into Peripheral Vein, Percutaneous Approach (ICD-10-PCS; 2021-09-11)
DX: C18.9 Malignant neoplasm of colon, unspecified (principal); G93.40 Encephalopathy, unspecified; K56.609 Unspecified intestinal obstruction, unspecified as to partial versus complete obstruction; E43 Unspecified severe protein-calorie malnutrition; I82.432 Acute embolism and thrombosis of left popliteal vein; D69.6 Thrombocytopenia, unspecified; I26.93 Single subsegmental thrombotic pulmonary embolism without acute cor pulmonale; K74.60 Unspecified cirrhosis of liver; E83.39 Other disorders of phosphorus metabolism; D64.9 Anemia, unspecified; E87.6 Hypokalemia; E83.42 Hypomagnesemia; F17.210 Nicotine dependence, cigarettes, uncomplicated; F10.10 Alcohol abuse, uncomplicated; G62.9 Polyneuropathy, unspecified; L60.0 Ingrowing nail; L85.3 Xerosis cutis; L60.2 Onychogryphosis; R26.89 Other abnormalities of gait and mobility; M75.02 Adhesive capsulitis of left shoulder; M75.01 Adhesive capsulitis of right shoulder; Z20.822 Contact with and (suspected) exposure to COVID-19; R26.9 Unspecified abnormalities of gait and mobility; F20.9 Schizophrenia, unspecified; K76.0 Fatty (change of) liver, not elsewhere classified; I70.203 Unspecified atherosclerosis of native arteries of extremities, bilateral legs; Z60.2 Problems related to living alone; Z79.899 Other long term (current) drug therapy; Z68.22 Body mass index [BMI] 22.0-22.9, adult; Z71.6 Tobacco abuse counseling; Z71.41 Alcohol abuse counseling and surveillance of alcoholic; K56.7 Ileus, unspecified; Z86.718 Personal history of other venous thrombosis and embolism; Z86.711 Personal history of pulmonary embolism; Z90.49 Acquired absence of other specified parts of digestive tract; Z95.828 Presence of other vascular implants and grafts; E83.51 Hypocalcemia
CPT/HCPCS: 36415; 36600; 37191; 71045; 71275; 74018; 74177; 76700; 76937; 80048; 80053; 80061; 80076; 80305; 81003; 82140; 82270; 82375; 82805; 83605; 83735; 83880; 84100; 84132; 84439; 84443; 84484; 85025; 86850; 86900; 86920; 87426; 88305; 88307; 92610; 93005; 93306; 93923; 93970; 94002; 94003; 94640; 97162; 97164; 97166; 97530; 99285; A6261; C1725; C1769; C1880; C1893; C9113; J0690; J1100; J1650; J2250; J2370; J2405; J2543; J2704; J2710; J3010; J3411; J3475; J3480; J3490; J7030; J7040; J7050; J7060; P9016; P9041; P9047; Q9963; Q9967; A4315